=== PATIENT | female | born 1975 | race Caucasian/White ===

== ENCOUNTER 2023-02-27 10:16 | Emergency (ER) | payer OTHER ==
[~2023-02-27] VITALS: Ht 172.7 cm; Wt 136.1 kg
[2023-02-27 10:34] VITALS: BP 119/87
[2023-02-27] MEDS ORDERED: Benztropine Mesy1 MG PO (12:09)
== END 2023-02-27 12:35 | disposition home or self-care (01) ==
LOC: ER 10:16
DX: G25.9 Extrapyramidal and movement disorder, unspecified (principal)
CPT/HCPCS: 99282; A9270

== ENCOUNTER 2023-08-01 09:10 | Emergency (ER) | payer OTHER ==
[~2023-08-01] VITALS: Ht 172.7 cm; Wt 90.7 kg
[~2023-08-01 09:10] MED LIST: Benztropine Mesy1 MG PO
[2023-08-01] MEDS ORDERED: OxyCODONE 5 mg/Acetamin 325 mg TABLET PO ONE (09:55)
[2023-08-01] MEDS ORDERED: Ketorolac Tromethamine 30mg Vial IM ONE (09:55)
[2023-08-01] MEDS ORDERED: Lidocaine 4% 1 Patch TOP ONE (10:20)
[2023-08-01] MEDS ORDERED: IBUP800 PO (11:00)
[2023-08-01] MEDS ORDERED: LIDOCAINE1 EAC1 TOP (11:00)
[2023-08-01 11:17] VITALS: BP 102/55
== END 2023-08-01 11:22 | disposition home or self-care (01) ==
LOC: ER 09:10
DX: S20.211A Contusion of right front wall of thorax, initial encounter (principal); V89.2XXA Person injured in unspecified motor-vehicle accident, traffic, initial encounter; Z79.899 Other long term (current) drug therapy
CPT/HCPCS: 71101; 96372; 99283-25; A9270; J1885

== ENCOUNTER → 2024-07-27 | Outpatient (CLI) | payer OTHER ==
[~2024-07-27] MED LIST changes: +ATOR40TA PO; +Aspir 8181 MG PO; +BENZ2 PO; +BENZTROPINE MESY1 M6 PO; +BUSP10 PO; +BUSPIRONE HCL10 M6 PO; +ERGO50000 PO; +IBUP800 PO; +LIDOCAINE1 EAC1 TOP; +PALI3TAB PO; +PALIPERIDONE ER6 MG PO; +PROP10 PO; +PROP60 PO; +Trihexyphenidyl2 MG PO
== END ==
LOC: LAB SHORT 08:09 → LAB 08:09
DX: B35.1 Tinea unguium (principal); L60.2 Onychogryphosis
CPT/HCPCS: 88305; 88312

== ENCOUNTER 2024-07-28 09:14 | Day surgery (SDC) | payer OTHER ==
[~2024-07-28] VITALS: Ht 172.7 cm; Wt 143.5 kg
[2024-07-28] VITALS (12 sets, daily range): BP systolic 108–124; BP diastolic 66–96
[~2024-07-28 09:14] MED LIST changes: -ATOR40TA PO; -Aspir 8181 MG PO; -BENZ2 PO; -BUSP10 PO; -ERGO50000 PO; -PALI3TAB PO; -PROP60 PO
[2024-07-28] MEDS ORDERED: BUSP10 PO (09:50)
[2024-07-28] MEDS ORDERED: BENZ2 PO (09:50)
[2024-07-28] MEDS ORDERED: ATOR40TA PO (09:50)
[2024-07-28] MEDS ORDERED: PALI3TAB PO (09:51)
[2024-07-28] MEDS ORDERED: ERGO50000 PO (09:51)
[2024-07-28] MEDS ORDERED: PROP60 PO (09:51)
[2024-07-28] MEDS ORDERED: Aspir 8181 MG PO (09:52)
[2024-07-28] MEDS ORDERED: Aspirin 81 MG Chew ONE (09:57)
[2024-07-28] MEDS ORDERED: Verapamil HCL 2.5 MG/ML 2ML Injection ONE (11:19)
[2024-07-28] MEDS ORDERED: Nitroglycerin 2 MG/20 ML BTL ONE (11:20)
[2024-07-28] MEDS ORDERED: NS 250 ML IV ONE (11:20)
[2024-07-28] MEDS ORDERED: NS 1,000 ML IV ONE ×2 (11:20→11:27)
[2024-07-28] MEDS ORDERED: Heparin Sodium 1000 Units/ML 10ML MDV ONE (11:20)
[2024-07-28] MEDS ORDERED: FentaNYL Citrate 50 MCG/ML 2 ML Injection ONE (11:27)
[2024-07-28] MEDS ORDERED: Midazolam HCl 1MG / ML 2ML Vial ONE ×2 (11:27→11:56)
--- NOTE | 2024-07-28 12:45 | NUR ---
ASSUMED CARE OF PT. PT ALERT AND ORIENTED, DENIES PAIN POST PROCEDURE, VSS. R RADIAL SITE NO SWELLING/HEMATOMA, TR BAND IN PLACE; RUE POSITIVE PLEUTH POST TR BAND PLACEMENT.
--- NOTE | 2024-07-28 14:35 | NUR ---
TR BAND FULLY DEFLATED, NO S/S OF BLEEDING/HEMATOMA.
--- NOTE | 2024-07-28 14:55 | NUR ---
PT DRESSED SELF WITHOUT ISSUE, SITE UNCHANGED. TR BAND REMOVED, CLOTH DOT AND WRIST IMMOBILZER PLACED; IV REMOVED-CANNULA INTACT.
--- NOTE | 2024-07-28 15:03 | NUR ---
PT RECEIVED DISCHARGE INSTRUCTIONS, MED LIST AND AFTER CARE INSTRUCTIONS; VERBALIZED GOOD UNDERSTANDING. PT LEFT FACILITY VIA W/C, CONDITION STABLE.
== END 2024-07-28 16:01 | disposition home or self-care (01) ==
LOC: MHTC 09:14
DX: R07.9 Chest pain, unspecified (principal); R00.2 Palpitations; R42 Dizziness and giddiness; R94.31 Abnormal electrocardiogram [ECG] [EKG]; E66.9 Obesity, unspecified; Z68.42 Body mass index [BMI] 45.0-49.9, adult; Z79.899 Other long term (current) drug therapy
CPT/HCPCS: 76937; 93458; 99152; 99153; A9270; C1769; C1887; C1894; J1644; J2250; J3010; J7030; J7050; Q9967